=== PATIENT | female | born 1960 | race Caucasian/White ===

== ENCOUNTER 2021-03-12 10:58 | Outpatient (CLI) | payer OTHER, SELFPAY ==
--- NOTE | ~2021-03-12 | MM_ITS ---
EXAMINATION: MM screening esperanza BI w fan HISTORY: Screening TECHNIQUE: Craniocaudal and mediolateral oblique 3-D tomosynthesis images were obtained and synthetic 2-D images were generated. CAD analysis was submitted and interpreted. COMPARISON: No prior mammogram is available for comparison at this institution. BREAST PARENCHYMAL COMPOSITION: There are scattered areas of fibroglandular density. FINDINGS: There is no evidence of suspicious mass, calcification, or architectural distortion to sugg est malignancy in either breast. There has been no suspicious interval change. IMPRESSION: 1. No mammographic evidence of malignancy. 2. Recommend routine screening mammography in one year. BI-RADS Category 1: Negative Reviewed, dictated and finalized at location A.
--- NOTE | ~2021-03-12 | DEXA_ITS ---
Bone Density Report Name: Elaine Richardson Age: 60 Sex: Female Ethnicity: White Date of : 1960 Indication: postmenopausal; height loss; Referring Provider: SAV, RON Study: Bone densitometry was performed. Exam Date: March 12, 2021 Accession number: [id number] Bone Density: Region BMD T-score Z-score Classification AP Spine (L1-L4) 1.399 3.2 4.7 Normal Femoral Neck (Left) 0.877 0.3 1.6 Normal Total Hip (Left) 1.072 1.1 2.1 Normal Total Hip Bilateral Avg 1.091 1.3 2.3 Normal Femoral Neck (Right) 0.941 0.8 2.2 Normal Total Hip (Right) 1.108 1.4 2.4 Normal World Health Organization criteria for BMD impression classify patients as: Normal (T-score at or above -1.0), Osteopenia (T-score between -1.0 and -2.5), or Osteoporosis (T-score at or below -2.5). 10-year Fracture Risk: FRAX not reported because: All T-scores for Spine Total, Hip Total, Femoral Neck at or above -1.0 Clinical Information Provided by Patient: Has used the following medications: Vitamin D Patient maximum height was 64 Menopause Age: 48 No regular weight bearing exercise Drinks caffeinated beverages Onset of menses at age 13 Number of children 1 Impression: The patient has normal bone mass. Discussion: BONE DENSITY IS ABOVE THE MINIMUM DESIRABLE LEVEL AT ALL SKELETAL SITES TESTED. This patient?s bone mineral density is above the minimum desirable level (T-score -1.0 or better) at all sites measured. The patient should follow a healthful lifestyle (good nutrition with adequate calcium and vitamin D, and appropriate weight-bearing exercise). Follow-Up: Consider repeating this study in 5 years or sooner if there is some new clinical indication. Reported by: LASHANDA on 03/12/2021 11:31:00 AM. Reviewed, dictated and finalized at location A.
== END 2021-03-12 10:59 | disposition home or self-care (01) ==
LOC: ANHIMG 11:02
PROVIDERS: PCP Family Medicine; Visit Provider Nurse Practitioner
DX: Z12.31 Encounter for screening mammogram for malignant neoplasm of breast (principal); Z78.0 Asymptomatic menopausal state
CPT/HCPCS: 77063; 77067; 77080

== ENCOUNTER 2022-07-01 11:31 | Outpatient (CLI) | payer OTHER, SELFPAY ==
--- NOTE | ~2022-07-01 | MM_ITS ---
EXAMINATION: MM screening esperanza BI w fan HISTORY: Screening mammogram TECHNIQUE: Craniocaudal and mediolateral oblique 3-D tomosynthesis images were obtained and synthetic 2-D images were generated. CAD analysis was submitted and interpreted. COMPARISON: 03/12/2021, 10/11/2010 bilateral screening mammogram examinations BREAST PARENCHYMAL COMPOSITION: There are scattered areas of fibroglandular density. FINDINGS: Diminished size of the breasts since 03/12/2021, presumably due to interval weight loss. Occasional bilateral benign calcified microhematomas. There is no evidence of suspicious mass, calcification, or architectural distortion to suggest malig regine in either breast. There has been no suspicious interval change. IMPRESSION: 1. No mammographic evidence of malignancy. 2. Recommend routine screening mammography in one year. BI-RADS Category 1: Negative Reviewed, dictated and finalized at location B.
== END 2022-07-01 11:32 | disposition home or self-care (01) ==
PROVIDERS: PCP Family Medicine Sports Medicine; Visit Provider Nurse Practitioner
DX: Z12.31 Encounter for screening mammogram for malignant neoplasm of breast (principal)
CPT/HCPCS: 77063; 77067

== ENCOUNTER → 2023-08-09 14:42 | Outpatient (CLI) | payer OTHER, SELFPAY ==
--- NOTE | ~2023-08-09 | MM_ITS ---
EXAMINATION: MM screening esperanza BI w fan HISTORY: Screening mammogram TECHNIQUE: Craniocaudal and mediolateral oblique 3-D tomosynthesis images were obtained and synthetic 2-D images were generated. CAD analysis was submitted and interpreted. COMPARISON: 07/01/2022, 03/12/2021 bilateral screening mammogram examinations BREAST PARENCHYMAL COMPOSITION: There are scattered areas of fibroglandular density. FINDINGS: Scattered bilateral benign calcified microhematomas. There is no evidence of suspicious mas s, calcification, or architectural distortion to suggest malignancy in either breast. There has been no suspicious interval change. IMPRESSION: 1. No mammographic evidence of malignancy. 2. Recommend routine screening mammography in one year. BI-RADS Category 1: Negative Reviewed, dictated and finalized at location A.
== END ==
PROVIDERS: PCP Family Medicine; Visit Provider Nurse Practitioner
DX: Z12.31 Encounter for screening mammogram for malignant neoplasm of breast (principal)
CPT/HCPCS: 77063; 77067

== ENCOUNTER → 2023-12-15 09:03 | Outpatient (CLI) | payer OTHER, SELFPAY ==
--- NOTE | ~2023-12-15 | US_ITS ---
EXAMINATION: US abdomen complete DATE: 12/15/2023 09:45 INDICATION: Abdominal mass. TECHNIQUE: Multiple grayscale and Doppler ultrasound images of the abdomen were obtained. COMPARISON: CT abdomen and pelvis 09/12/2010 FINDINGS: Abdominal aorta is normal in caliber. Inferior vena cava is normal. Visualized portions of the head, body, and tail the pancreas are normal. The liver is normal without focal lesion. There is normal flow in main portal vein. The gallbladder is absent. The common duct is normal and measures 8 mm . The kidneys are normal in size. There are cysts in the kidneys measuring up to 1.4 cm on the rig ht. The spleen is normal in size. Superior to the umbilicus, there is a 2.2 x 0.5 x 0.7 cm subcutaneo us mass of mixed echogenicity. IMPRESSION: 1. 2.2 x 0.5 x 0.7 cm subcutaneous mass superior to the umbilicus. The differential diagnosis include s hematoma, scarring, and infection. Reviewed, dictated and finalized at location A. Y LEAD IMPRESSION: 1. 2.2 x 0.5 x 0.7 cm subcutaneous mass superior to the umbilicus. The differen tia diagnosis includes hematoma, scarring, and infection.
== END ==
PROVIDERS: PCP Family Medicine; Visit Provider Family Medicine
DX: R19.00 Intra-abdominal and pelvic swelling, mass and lump, unspecified site (principal)
CPT/HCPCS: 76700

== ENCOUNTER 2024-04-14 13:04 | Outpatient (CLI) | payer OTHER, SELFPAY ==
--- NOTE | ~2024-04-14 | DEXA_ITS ---
Bone Density Report Name: KIANA FAM Age: 63 Sex: Female Ethnicity: White Date of : 1960 Indication: postmenopausal; screening for osteoporosis; height loss; Referring Provider: ANGELY STAHL Study: Bone densitometry was performed. Exam Date: April 14, 2024 Accession number: [id number] Bone Density: Region BMD T-score Z-score Classification AP Spine(L1-L4) 1.372 3.0 4.6 Normal Femoral Neck (Left) 0.760 -0.8 0.7 Normal Total Hip (Left) 0.915 -0.2 0.9 Normal Femoral Neck (Right) 0.798 -0.5 1.0 Normal Total Hip (Right) 0.925 -0.1 1.0 Normal Total Hip Mean 0.920 -0.2 1.0 Normal World Health Organization criteria for BMD impression classify patients as: Normal (T-score at or above -1.0), Osteopenia (T-score between -1.0 and -2.5), or Osteoporosis (T-score at or below -2.5). 10-year Fracture Risk: FRAX not reported because: All T-scores for Spine Total, Hip Total, Femoral Neck at or above -1.0 Previous Exams: Region Exam Age BMD T-score BMD Change BMD Change Date g/cm2 vs Baseline vs Previous AP Spine (L1-L4) 04/14/2024 63 1.372 3.0 -0.028 (-2.0%) -0.028 (-2.0%) 03/12/2021 60 1.399 3.2 Total Hip(Left) 04/14/2024 63 0.915 -0.2 -0.157 (-14.6% -0.157 (-14.6% 03/12/2021 60 1.072 1.1 Total Hip(Right) 04/14/2024 63 0.925 -0.1 -0.183 (-16.5% -0.183 (-16.5% 03/12/2021 60 1.108 1.4 *Denotes significance at 95% confidence level, LSC for AP Spine = 0.022 g/cm2, LSC for Total Hip = 0.027 g/cm2 # Denotes dissimilar scan types or analysis methods Clinical Information Provided by Patient: Patient maximum height was 64 Menopause Age: 48 No regular weight bearing exercise Onset of menses at age 13 Number of children 1 Impression: The patient has normal bone mass. No significant bone loss was observed. Discussion: BONE DENSITY IS ABOVE THE MINIMUM DESIRABLE LEVEL AT ALL SKELETAL SITES TESTED. This patient?s bone mineral density is above the minimum desirable level (T-score -1.0 or better) at all sites measured. The patient should follow a healthful lifestyle (good nutrition with adequate calcium and vitamin D, and appropriate weight-bearing exercise). Follow-Up: Consider repeating this study in 5 years or sooner if there is some new clinical indication. Reported by: ADEOLA on 04/14/2024 1:31:00 PM. manny Cano and finalized at [facility]
== END 2024-04-14 13:05 | disposition home or self-care (01) ==
LOC: ANHIMG 13:07
PROVIDERS: PCP Nurse Practitioner Family; Visit Provider Obstetrics & Gynecology Gynecology
DX: Z13.820 Encounter for screening for osteoporosis (principal); Z78.0 Asymptomatic menopausal state
CPT/HCPCS: 77080

== ENCOUNTER 2024-05-27 10:04 | Emergency (ER) | payer OTHER, SELFPAY ==
--- NOTE | ~2024-05-27 | CT_ITS ---
EXAMINATION: CT cervical spine wo con DATE: 05/27/2024 11:54 INDICATION: Nontraumatic neck pain TECHNIQUE: Computed tomography (CT) of the cervical spine was performed without intravenous contrast. Automated exposure control and iterative reconstruction technique were employed. The dose-length pro duct was 151.67 mGy-cm. COMPARISON: None FINDINGS: 60 degrees cervical levocurvature. Mild reversal of the normal lordosis in the lower cervical spine. Severe osteoarthritis at the atlantoaxial articulation. Vertebral body heights are normal. No fractur es. Moderate disc height loss at C5-C6 and mild disc height loss at C4-C5 and C6-C7. Mild emphysema t he bilateral apices of lungs. Small calcified right apical nodule consistent with old granulomatous d isease. Cervical soft tissues are unremarkable. The following disc levels are specifically discussed: C2-C3: Small central disc protrusion. There is minimal bilateral uncovertebral joint osteoarthritis. There is mild left and severe right facet joint osteoarthritis. There is no neural foraminal stenosis . There is minimal central canal stenosis. C3-C4: Disc is bulging. There is mild bilateral uncovertebral joint osteoarthritis. There is moderate left and severe right facet joint osteoarthritis. There is mild bilateral neural foraminal stenosis. There is mild central canal stenosis. C4-C5: Moderate size central disc protrusion. There is mild bilateral uncovertebral joint osteoarthri tis. There is moderate to severe bilateral facet joint osteoarthritis. There is mild bilateral neural foraminal stenosis. There is mild central canal stenosis. C5-C6: Posterior disc osteophyte complex. There is severe bilateral uncovertebral joint osteoarthriti s. There is mild bilateral facet joint osteoarthritis. There is moderate bilateral neural foraminal s tenosis. There is mild central canal stenosis. C6-C7: Posterior disc osteophyte complex. There is moderate bilateral uncovertebral joint osteoarthri tis. There is mild to moderate left and severe right facet joint osteoarthritis. There is mild bilate ral neural foraminal stenosis. There is mild central canal stenosis. C7-T1: The disc does not extend beyond the endplate margin. There is mild bilateral uncovertebral katina nt osteoarthritis. There is moderate to severe left and severe right facet joint osteoarthritis. Ther e is mild bilateral neural foraminal stenosis. There is no central canal stenosis. IMPRESSION: 1. Moderate cervical spondylosis. Reviewed, dictated and finalized at location A.
[2024-05-27 10:21] VITALS: BP 137/84; PULSE 57; RESP 14; TEMP 36.4; O2SAT 100
--- NOTE | 2024-05-27 11:19 | ED.NECK ---
HPI - Neck Pain/Injury General Chief Complaint: Neck Pain/Injury Stated Complaint: neck pain Time Seen by Provider: 05/27/24 10:57 Source: patient Mode of arrival: ambulatory Limitations: no limitations History of Present Illness HPI Narrative: 64 YEARS OLD WHITE FEMALE CAME TO THE ED COMPLAINING OF RIGHT NECK, RIGHT UPPER BACK PAIN RADIATING TO THE RIGHT SIDE OF THE HEAD. WORSE WITH ANY MOVEMENT AND CERTAIN POSITION, SOMETIME BETTER AT REST. THE SYMPTOMS STARTED 1 WEEK AGO AFTER MOVING FURNITURE. SHE DENIES ANY FEVER, CHILLS, NAUSEA, VOMITING. NO FOCAL NEURO DEFICIT. Related Data Allergies Allergy/AdvReac Type Severity Reaction Status Date / Time metronidazole Allergy Severe NAUSEA AND Verified 05/27/24 10:04 VOMITING DIPHENHYDRAMINE HCL Allergy Severe SOB Uncoded 05/27/24 10:04 METRONIDAZOLE HCL Allergy Severe NAUSEA AND Uncoded 05/27/24 10:04 VOMITING Review of Systems Review of Systems: All systems reviewed & are unremarkable except as noted in HPI and below Exam Narrative: GENERAL APPEARANCE: WELL-DEVELOPED, WELL-NOURISHED SKIN: NORMAL COLOR HEAD: NORMOCEPHALIC, NONTRAUMATIC EYES: CLEAR CONJUNCTIVA ENT: OROPHARYNX NORMAL, EARS NORMAL, NOSE NORMAL NECK: DIFFUSE TENDERNESS RIGHT SIDE OF NECK, NO BRUISES, NO MASS, NO LYMPHADENOPATHY, LIMITED RANGE OF MOTION CHEST AND RESPIRATORY: AIRWAY PATENT, NO RESPIRATORY DISTRESS, NO ACCESSORY MUSCLE USE HEART: REGULAR RATE/RHYTHM ABDOMEN: SOFT, NONTENDER, NO ORGANOMEGALY, QUIET BOWEL SOUNDS VASCULAR: NORMAL PERIPHERAL PULSES, NORMAL CAPILLARY REFILL. MUSCULOSKELETAL: DIFFUSE RIGHT UPPER BACK TENDERNESS, NO BRUISES, NO SWELLING OR RASH NEUROLOGIC: ALERT AND ORIENTED ?3, CLINICAL REVIEW SPECIALIST IS NORMAL TESTED, NO GROSS MOTOR DEFICIT Course Vital Signs Vital signs: Vital Signs Temperature 36.4 C L 05/27/24 10:21 Pulse Rate 57 L 05/27/24 10:21 Respiratory Rate 14 05/27/24 10:21 Blood Pressure 137/84 05/27/24 10:21 Pulse Oximetry 100 05/27/24 10:21 Oxygen Delivery Room Air 05/27/24 10:21 Temperature 36.4 C L 05/27/24 10:21 Pulse Rate 57 L 05/27/24 10:21 Respiratory Rate 14 05/27/24 10:21 Blood Pressure 137/84 05/27/24 10:21 Pulse Oximetry 100 05/27/24 10:21 Oxygen Delivery Room Air 05/27/24 10:21 MDM - Neck Pain/Injury MDM Narrative Medical decision making narrative: PATIENT PRESENTS WITH RIGHT-SIDED NECK PAIN AFTER MOVING FURNITURE VITAL SIGNS ON ARRIVAL TO THE ED UNREMARKABLE PHYSICAL EXAMINATION SHOWED DIFFUSE TENDERNESS RIGHT UPPER BACK RIGHT NECK WORSE WITH ANY MOVEMENT, DIFFERENTIAL DIAGNOSIS MUSCULOSKELETAL PAIN STRAIN/SPRAIN CT CERVICAL SPINE SHOWED NO ACUTE ABNORMALITIES. PATIENT REQUESTED TO BE OFF WORK FOR THE NEXT 3 DAYS BECAUSE CANNOT CONTINUE TYPING AT WORK. DISCHARGED ON DICLOFENAC AND CYCLOBENZAPRINE. IT DISCHARGE THE PT WAS DISCHARGED TO HOME.THE PT,S CONDITION UPON DISCHARGE WAS FAIR,EDUCATION WAS PROVIDED TO THE PT IN REFERENCE TO THE FINAL IMPRESSION,DISCHARGE STUDY RESULTS,TREATMENT,PROGNOSIS AND NEED FOR FOLLOW UP . Differential Diagnosis Differential diagnosis: Likely other ( ABOVE) Imaging Data My impression: Impressions Cervical Spine CT 05/27/24 11:56 IMPRESSION: 1. Moderate cervical spondylosis. Radiologist's impression: CT CERVICAL SPINE SHOWED NO ACUTE ABNORMALITIES Critical Care Time Critical Care Time Critical Care Time: No Discharge Plan Discharge Clinical Impression: Strain of neck muscle Patient Disposition: Home, Self-Care Condition: Stable Instructions: Cervical Sprain (ED) Additional Instructions: RETURN IF SYMPTOMS ARE WORSENING , CALL YOUR FAMILY PHYSICIAN FO
[2024-05-27] MEDS: HYDROcodone/acetaminophen (*CRX) 5-325 MG TABLET 1 TAB PO (11:29)
[2024-05-27 12:31] VITALS: BP 130/72; PULSE 62; RESP 16; O2SAT 100
== END 2024-05-27 12:32 | disposition home or self-care (01) ==
PROVIDERS: Emergency Provider Emergency Medicine; PCP Nurse Practitioner Family
DX: S16.1XXA Strain of muscle, fascia and tendon at neck level, initial encounter (principal); M47.812 Spondylosis without myelopathy or radiculopathy, cervical region; X50.0XXA Overexertion from strenuous movement or load, initial encounter
CPT/HCPCS: 72125; 99284; A9270

== ENCOUNTER 2024-05-30 10:46 | Outpatient (CLI) | payer OTHER, SELFPAY ==
--- NOTE | ~2024-05-30 | MMUS_ITS ---
EXAMINATION: MM diagnostic esperanza RT w fan, US breast RT limited HISTORY: Right nipple itching sensation for 6 months TECHNIQUE: Additional 3-D tomosynthesis images of the right breast were performed and synthetic 2-D i mages were generated. CAD analysis was submitted and interpreted. High resolution Limited right breas t ultrasound was performed. COMPARISON: Comparison to multiple prior studies sequentially, with oldest reviewed study dated 03/12. BREAST PARENCHYMAL COMPOSITION: Dense: The breasts are heterogeneously dense, which may obscure small masses FINDINGS: MAMMOGRAPHIC FINDINGS: There are no suspicious masses, calcifications or architectural distortion in the right breast to sug gest malignancy. ULTRASOUND: Limited right breast ultrasound: Normal heterogeneous echotexture without focal solid or cystic mass. IMPRESSION: 1. No evidence for malignancy in the right breast. 2. Routine yearly screening mammogram and regular clinical breast examination are recommended. BI-RADS Category 1: Negative Reviewed, dictated and finalized at location B. IMPRESSION: 1. No evidence for malignancy in the right breast. 2. Routine yearly screening mammogram and regular clinical breast examination a re recommended. BI-RADS Category 1: Negative
== END 2024-05-30 10:47 | disposition home or self-care (01) ==
PROVIDERS: PCP Nurse Practitioner Family; Visit Provider Nurse Practitioner
DX: N64.89 Other specified disorders of breast (principal); L29.9 Pruritus, unspecified
CPT/HCPCS: 76642; 77061; 77065; G0279

== ENCOUNTER 2024-07-30 09:44 | Emergency (ER) | payer OTHER, SELFPAY ==
[2024-07-30 09:51] VITALS: BP 123/78; PULSE 57; RESP 16; TEMP 36.4; O2SAT 100
--- NOTE | 2024-07-30 10:02 | ED.NECK ---
HPI - Neck Pain/Injury General Chief Complaint: Neck Pain/Injury Stated Complaint: rt side neck pain Time Seen by Provider: 07/30/24 10:02 Source: patient, RN notes reviewed and old records reviewed Mode of arrival: ambulatory Limitations: no limitations History of Present Illness HPI Narrative: 64 year old female morris presents to express care with complaints of right sided neck pain with history of neck pain since spring of this year with no known injury. Patient reports that he went to the emergency in May and had CT of cervical spine with diagnosis of cervical strain. Patient reports that she received some muscle relaxers which she has been taking sporadically usually cuts in half due to making her sleepy and finished script of diclofenac Patient reports that pain has increased pain to the right side of her neck for the past week, has had some throbbing headaches, denies any radiation to her right arm, pain on palpation to lateral right neck and muscle tissue between right shoulder with some limited neck movement on right due to pain. Patient reports that she has been taking Ibuprofen and Aleve without improvement. MD complaint: neck pain Onset (ago): week(s) (initially May has improved then increased) Severity scale (1-10): 10 Quality: aching and throbbing Exacerbating factors: movement of neck Treatments prior to arrival: ibuprofen and other (took 14 days of diclofenac, some muscle relaxers some Aleve) Related Data Home Medications Medication Instructions Recorded Confirmed escitalopram oxalate 20 mg tablet 20 mg PO DAILY 07/24/24 07/30/24 (Lexapro) lamotrigine 200 mg disintegrating 200 mg PO BID 07/24/24 07/30/24 tablet (Lamictal ODT) pantoprazole 40 mg tablet,delayed 40 mg PO BID 07/24/24 07/30/24 release propranolol 10 mg tablet 10 mg PO TID 07/24/24 07/30/24 amlodipine 5 mg tablet 5 mg PO DAILY 07/30/24 07/30/24 lisinopril 5 mg tablet 5 mg PO DAILY 07/30/24 07/30/24 Allergies Allergy/AdvReac Type Severity Reaction Status Date / Time metronidazole Allergy Severe NAUSEA AND Verified 07/31/24 13:42 VOMITING DIPHENHYDRAMINE HCL Allergy Severe SOB Uncoded 07/31/24 13:42 METRONIDAZOLE HCL Allergy Severe NAUSEA AND Uncoded 07/31/24 13:42 VOMITING Review of Systems Review of Systems: CONSTITUTIONAL: Denies fever, chills, or sweats. EYES: Denies visual changes, redness, or discharge. ENT: Denies rhinorrhea, congestion, sore throat, or otalgia. CARDIOVASCULAR: Denies chest pain, palpitations, or edema. RESPIRATORY: Denies cough or dyspnea. GASTROINTESTINAL: Denies abdominal pain, nausea, vomiting, or diarrhea. GENITOURINARY: Denies dysuria or hematuria. SKIN: Denies rash or itching. MUSCULOSKELETAL: Report right sided neck pain, or myalgia. NEUROLOGIC: Reports headache,denies any numbness, or weakness. PSYCHIATRIC: Positive for history of anxiety or depression. All systems reviewed & are unremarkable except as noted in HPI and below PMFSH Past Medical History Medical History (Updated 08/01/24 @ 07:20 by Ernestina Sears NP) Anxiety and depression GERD (gastroesophageal reflux disease) Hx of migraines Hypertension Surgical History Surgical History (Updated 08/01/24 @ 07:19 by Ernestina Sears NP) H/O tubal ligation History of cholecystectomy History of Lawrence fundoplication Social History Social History (Updated 08/01/24 @ 07:21 by Ernestina Sears NP) Smoking status: Never smoker Alcohol intake: never Substance use: never Substance use type: does not use Current Housing: Decline to Answer Concerned About Future Housing: Decline to Answer Difficulty Paying Gas/Electric Bills: Decline to Answer Difficulty Paying for Meds: Decline to Answer Currently Unemployed: Decline to Answer Education: Decline to Answer Difficulty w/ Childcare or Family Care: Decline to Answer Living arrangements: with family Gender identity (if verbalized by the patient): Female
== END 2024-07-30 10:28 | disposition home or self-care (01) ==
PROVIDERS: Emergency Provider Registered Nurse; PCP Nurse Practitioner Family
DX: M54.2 Cervicalgia (principal); I10 Essential (primary) hypertension; K21.9 Gastro-esophageal reflux disease without esophagitis; F41.9 Anxiety disorder, unspecified; F32.A Depression, unspecified
CPT/HCPCS: 99213; G0463

== ENCOUNTER 2024-08-11 14:48 | Outpatient (CLI) | payer OTHER, SELFPAY ==
--- NOTE | ~2024-08-11 | MM_ITS ---
EXAMINATION: MM screening esperanza BI w fan HISTORY: Screening mammogram TECHNIQUE: Craniocaudal and mediolateral oblique 3-D tomosynthesis images were obtained and synthetic 2-D images were generated. CAD analysis was submitted and interpreted. COMPARISON: 05/30/2024, 08/09/2023, 07/01/2022, 03/12/2021 BREAST PARENCHYMAL COMPOSITION:Dense: The breasts are extremely dense, which lowers the sensitivity o f mammography. FINDINGS: No suspicious mass, calcification, or architectural distortion are identified in either rojelio ast to suggest malignancy. There has been no suspicious interval change. IMPRESSION: No mammographic evidence of malignancy. Recommend routine screening mammography in one year. BI-RADS Category 1: Negative Reviewed, dictated and finalized at location .
== END 2024-08-11 14:49 | disposition home or self-care (01) ==
PROVIDERS: PCP Nurse Practitioner Family; Visit Provider Nurse Practitioner
DX: Z12.31 Encounter for screening mammogram for malignant neoplasm of breast (principal)
CPT/HCPCS: 77063; 77067

== ENCOUNTER 2024-09-16 13:47 | Outpatient (CLI) | payer OTHER, SELFPAY ==
--- NOTE | ~2024-09-16 | MR_ITS ---
MR breast BI wo/w con 09/16/2024 17:00 [employer] RN INDICATION: Right nipple pruritus TECHNIQUE: MRI of the breasts perform using standard protocol pre-and post IV contrast with the follo wing sequences: Axial T2 STIR, axial T1, axial vibrant T1 with fat suppression precontrast and multip hasic postcontrast. 11 cc MultiHance administered intravenously. COMPARISON: Comparison to multiple prior studies sequentially, with oldest reviewed study dated 03/12. FINDINGS: Right breast: There are no abnormalities on the precontrast sequences. There is minimal vishal kground parenchymal enhancement. No enhancing lesions following contrast administration. No areas o f enhancement meeting threshold criteria on CAD analysis. No evidence of signal abnormalities in the axillary or internal mammary node distributions. LEFT BREAST: No signal abnormalities on precontrast sequences. There is minimal background parenchym al enhancement. No enhancing lesions following contrast administration. No areas of enhancement me eting threshold criteria on CAD analysis. No evidence of signal abnormalities in the axillary or in ternal mammary node distributions.] IMPRESSION: 1: Right breast: Negative. No evidence of malignancy. BI-RADS category 1. Recommend annual mammo graphy follow-up. 2: Left breast: Negative. No evidence of malignancy. BI-RADS category 1. Recommend annual mammogr aphy follow-up. Follow-up MRI may be useful for supplementing mammographic evaluation as clinically indicated. Reviewed, dictated and finalized at location B. [facility] RN IMPRESSION: 1: Right breast: Negative. No evidence of malignancy. BI-RADS category 1. Recommend annual mammography follow-up. 2: Left breast: Negative. No evidence of malignancy. BI-RADS category 1. Re commend annual mammography follow-up. Follow-up MRI may be useful for supplementing mammographic evaluation as clinic ally indicated.
== END 2024-09-16 13:48 | disposition home or self-care (01) ==
PROVIDERS: PCP Nurse Practitioner Family; Visit Provider Physician Assistant Surgical
DX: L29.89 Other pruritus (principal)
CPT/HCPCS: 77049; A9577; C8908